=== PATIENT | male | born 1965 | race Caucasian/White ===

== ENCOUNTER 2018-01-31 23:04 | Emergency (ER) | payer SELFPAY ==
[2018-01-31 23:43] VITALS: BP 132/85
[2018-02-01] MEDS ORDERED: HYDROCODONE/ACETAMINOPHEN 5-325 MG (6 TAB/ER DISP) PO PRN (00:22)
[2018-02-01] MEDS ORDERED: PENICILLIN V POTASSIUM 500 MG TABLET PO ONE (00:22)
--- NOTE | 2018-02-01 00:24 | ER Document Report ---
ED General - General Chief Complaint: Toothache Stated Complaint: ABSCESS Time Seen by Provider: 02/01/18 00:08 Notes: Patient is 52-year-old male presents with complaint of a chipped tooth. He said he was eating some today and the tooth broke no evidence of the pain in his tooth. She will call the dentist tomorrow for close follow-up. He denies any fevers. No facial or neck swelling. No difficulty swallowing. He took Motrin at home and did not help the pain. No other complaints at this time. TRAVEL OUTSIDE OF THE [place] IN LAST 30 DAYS: No - Related Data Allergies/Adverse Reactions: No Known Allergies Allergy (Verified 07/01/15 09:29) Past Medical History - Social History Smoking Status: Unknown if Ever Smoked Frequency of alcohol use: None Drug Abuse: None Family History: Reviewed & Not Pertinent - Past Medical History Cardiac Medical History: Denies: Hx Coronary Artery Disease, Hx Heart Attack, Hx Hypertension Pulmonary Medical History: Denies: Hx Asthma, Hx Bronchitis, Hx COPD, Hx Pneumonia Neurological Medical History: Denies: Hx Cerebrovascular Accident, Hx Seizures Musculoskeltal Medical History: Reports Hx Arthritis - rt shoulder - Immunizations Hx Diphtheria, Pertussis, Tetanus Vaccination: No Review of Systems - Review of Systems Notes: My Normal Review Basic REVIEW OF SYSTEMS: CONSTITUTIONAL : Denies fever, chills, or sweats. Denies recent illness. EENT: Dental pain RESPIRATORY: Denies cough, cold, or chest congestion. Denies shortness of breath, difficulty breathing, or wheezing. GASTROINTESTINAL: Denies abdominal pain. Denies nausea, vomiting, or diarrhea. GENITOURINARY: Denies difficulty urinating, painful urination, burning, frequency, or blood in urine. MUSCULOSKELETAL: Denies neck or back pain or joint pain or swelling. SKIN: Denies rash or skin lesions. NEUROLOGICAL: Denies altered mental status or loss of consciousness. Denies headache. Denies weakness or paralysis or loss of use of either side. Denies problems with gait or speech. Denies sensory or motor loss. ALL OTHER SYSTEMS REVIEWED AND NEGATIVE. Physical Exam - Vital signs Vitals: Temp Pulse Resp BP Pulse Ox 98.4 F 55 L 18 132/85 H 97 01/31/18 23:42 01/31/18 23:42 01/31/18 23:42 01/31/18 23:42 01/31/18 23:42 - Notes Notes: General Appearance: Well nourished, alert, cooperative, no acute distress, no obvious discomfort. Vitals: reviewed, See vital signs table. Head: no swelling or tenderness to the head Eyes: PERRL, EOMI, Conjuctiva clear Mouth: Fractured right lower canine. No active bleeding. No facial swelling. Throat: No tonsillar inflammation, No airway obstruction, No lymphadenopathy Neck: Supple, no neck tenderness, No thyromegaly Neuro: speech clear, oriented x 3, normal affect, responds appropriately to questions. Course - Re-evaluation Re-evalutation: 02/01/18 05:23 Patient was discharged home on penicillin and encouraged to follow up with the dentist tomorrow. Patient says he does have a dentist that he will call tomorrow for close follow-up. Patient encouraged to return to ER immediately if he has facial swelling, difficulty breathing, difficulty swallowing, or fevers. Patient agrees with plan will be discharged home. Dictation of this chart was performed using voice recognition software; therefore, there may be some unintended grammatical errors. - Vital Signs Vital signs: Temp Pulse Resp BP Pulse Ox 98.4 F 55 L 18 132/85 H 97 01/31/18 23:42 01/31/18 23:42 01/31/18 23:42 01/31/18 23:42 01/31/18 23:42 Discharge - Discharge Clinical Impression: Toothache Condition: Good Disposition: HOME, SELF-CARE Instructions: Oral Narcotic Medication ([facility]), Penicillin V K ([facility]) Additional Instructions: Please call your dentist in the morning to follow up for definitive treatment of you tooth. Please return to the ER immediately if you develop fevers, swelling below the jaw, difficulty breathing, or difficulty swallowing. Prescriptions: Penicillin V Potassium [Penicillin Vk 500 mg Tablet] 500 mg PO BID #14 tablet Forms: Special Work Note, Return to Work
== END 2018-02-01 00:44 | disposition home or self-care (01) ==
LOC: ER 23:04
DX: K11.20 Sialoadenitis, unspecified (principal); K08.89 Other specified disorders of teeth and supporting structures; F17.200 Nicotine dependence, unspecified, uncomplicated
CPT/HCPCS: 99282

== ENCOUNTER 2018-02-02 13:41 | Emergency (ER) | payer SELFPAY ==
[2018-02-02] MEDS ORDERED: AMPICILLIN SOD/SULBACTAM 3 GM VIAL IV ONE (13:56)
[2018-02-02] MEDS ORDERED: FENTANYL CITRATE INJ/PF 100 MCG/2 ML AMPUL IV ONE (13:56)
--- NOTE | 2018-02-02 13:57 | ER Document Report ---
ED Medical Screen (RME) - General Chief Complaint: Toothache Stated Complaint: MOUTH PAIN Time Seen by Provider: 02/02/18 13:49 Notes: RAPID MEDICAL EVALUATION DISCLOSURE I have seen this patient as part of a Rapid Medical Evaluation and, if applicable, placed any initially appropriate orders. The patient will be seen and fully evaluated, including a full history and physical exam, by a provider ( in Main ED or Fast Track) when a room becomes available. 52-year-old male here with complaints of right-sided facial swelling and toothache ongoing for the past few days. He was seen here for the same thing and was prescribed oxycodone and penicillin. He started taking the penicillin yesterday and was supposed to take it twice daily but has actually taken 4 doses yesterday because he thought it would help the symptoms improve faster. The swelling did go down however states that he woke up this morning and is now worse than it was previously. He is concerned about an abscess. EXAM Mild right facial swelling No sublingual brawny induration Multiple dental caries with no visible drainage TRAVEL OUTSIDE OF THE [place] IN LAST 30 DAYS: No - Related Data Allergies/Adverse Reactions: No Known Allergies Allergy (Verified 02/02/18 13:50) Past Medical History - Social History Chew tobacco use (# tins/day): No Frequency of alcohol use: None Drug Abuse: None - Past Medical History Cardiac Medical History: Denies: Hx Coronary Artery Disease, Hx Heart Attack, Hx Hypertension Pulmonary Medical History: Denies: Hx Asthma, Hx Bronchitis, Hx COPD, Hx Pneumonia Neurological Medical History: Denies: Hx Cerebrovascular Accident, Hx Seizures Renal/ Medical History: Denies: Hx Peritoneal Dialysis Musculoskeltal Medical History: Reports Hx Arthritis - rt shoulder - Immunizations Hx Diphtheria, Pertussis, Tetanus Vaccination: No Physical Exam - Vital signs Vitals: Temp Pulse Resp BP Pulse Ox 99.6 F 72 20 134/91 H 97 02/02/18 13:46 02/02/18 13:46 02/02/18 13:46 02/02/18 13:46 02/02/18 13:46 Course - Vital Signs Vital signs: Temp Pulse Resp BP Pulse Ox 99.6 F 72 20 134/91 H 97 02/02/18 13:46 02/02/18 13:46 02/02/18 13:46 02/02/18 13:46 02/02/18 13:46
[2018-02-02 14:54] LABS: ABSOLUTE EOSINOPHILS # (AUTO) 0.1 10^3/uL (0.0-0.6); ABSOLUTE MONOCYTES (AUTO) 0.9 10^3/uL (0.1-1.4); ABSOLUTE NEUT (AUTO) 4.8 10^3/uL (1.7-8.2); BASOPHILS % (AUTO) 0.3 % (0-2); EOSINOPHILS % (AUTO) 1.4 % (0-6); HEMOGLOBIN 15.7 g/dL (13.5-17.0); LYMPHOCYTES % (AUTO) 33.6 % (13-45); MEAN CORPUSCULAR HEMOGLOBIN 31.2 pg (27.0-33.4); MEAN CORPUSCULAR HGB CONC 35.6 g/dL (32.0-36.0); MEAN CORPUSCULAR VOLUME 88 fl (80-97); MONOCYTES % (AUTO) 10.6 % (3-13); PLATELET COUNT 229 10^3/uL (150-450); RED BLOOD COUNT 5.02 10^6/uL (4.35-5.55); RED CELL DISTRIBUTION WIDTH 12.7 % (11.5-14.0); SEGMENTED NEUTROPHILS % (AUTO) 54.1 % (42-78); TOTAL CELLS COUNTED % (AUTO) 100 %; WHITE BLOOD COUNT 8.9 10^3/uL (4.0-10.5)
--- NOTE | 2018-02-02 15:01 | ER Document Report ---
ED Oral Problem - General Chief Complaint: Toothache Stated Complaint: MOUTH PAIN Time Seen by Provider: 02/02/18 13:49 Notes: The patient is a 52-year-old male who presents with increasing right-sided facial swelling the past 2 days. He was seen in the ER 2 nights ago and prescribed penicillin and oxycodone for suspected dental abscess. He took 4 doses of his penicillin, but the swelling has increasing in size. He has not followed up with the dentist at this time due to weekend, but he has contacted [facility] for an appointment at the [facility]. He has denies difficulty swallowing, neck stiffness, fevers, blurry vision, back pain or ear pain. TRAVEL OUTSIDE OF THE [place] IN LAST 30 DAYS: No - Related Data Allergies/Adverse Reactions: No Known Allergies Allergy (Verified 02/02/18 13:50) Past Medical History - General Information source: Patient - Social History Smoking Status: Current Every Day Smoker Chew tobacco use (# tins/day): No Frequency of alcohol use: None Drug Abuse: None Family History: Reviewed & Not Pertinent Patient has suicidal ideation: No Patient has homicidal ideation: No - Past Medical History Cardiac Medical History: Denies: Hx Coronary Artery Disease, Hx Heart Attack, Hx Hypertension Pulmonary Medical History: Denies: Hx Asthma, Hx Bronchitis, Hx COPD, Hx Pneumonia Neurological Medical History: Denies: Hx Cerebrovascular Accident, Hx Seizures Renal/ Medical History: Denies: Hx Peritoneal Dialysis Musculoskeltal Medical History: Reports Hx Arthritis - rt shoulder - Immunizations Hx Diphtheria, Pertussis, Tetanus Vaccination: No Review of Systems - Review of Systems Notes: REVIEW OF SYSTEMS: CONSTITUTIONAL: -fevers, -chills EENT: -eye pain, -difficulty swallowing, -nasal congestion, +dental pain, +right -sided facial swelling CARDIOVASCULAR: -chest pain, -syncope. RESPIRATORY: -cough, -SOB GASTROINTESTINAL: -abdominal pain, -nausea, -vomiting, -diarrhea GENITOURINARY: -dysuria, -hematuria MUSCULOSKELETAL: -back pain, -neck pain SKIN: -rash or skin lesions. HEMATOLOGIC: -easy bruising or bleeding. LYMPHATIC: -swollen, enlarged glands. NEUROLOGICAL: -altered mental status or loss of consciousness, -headache, - neurologic symptoms PSYCHIATRIC: -anxiety, -depression. ALL OTHER SYSTEMS REVIEWED AND NEGATIVE. Physical Exam - Vital signs Vitals: Temp Pulse Resp BP Pulse Ox 99.6 F 72 20 134/91 H 97 02/02/18 13:46 02/02/18 13:46 02/02/18 13:46 02/02/18 13:46 02/02/18 13:46 - Notes Notes: PHYSICAL EXAMINATION: GENERAL: Well-appearing, well-nourished and in no acute distress. HEAD: Atraumatic, normocephalic. EYES: Pupils equal round and reactive to light, extraocular movements intact, sclera anicteric, conjunctiva are normal. ENT: mild swelling of right-sided lower face sub-mandibular area, no sublingual brawny induration, multiple dental caries with no visible drainage, poor dentition, nares patent, oropharynx clear without exudates. Moist mucous membranes. No tongue elevation. NECK: Normal range of motion, supple with right-sided lymphadenopathy. LUNGS: Breath sounds clear to auscultation bilaterally and equal. No wheezes rales or rhonchi. HEART: Regular rate and rhythm without murmurs ABDOMEN: Soft, nontender, normoactive bowel sounds. No guarding, no rebound. No masses appreciated. EXTREMITIES: Normal range of motion, no pitting or edema. No cyanosis. NEUROLOGICAL: Cranial nerves grossly intact. Normal speech, normal gait. Normal sensory and motor exams. PSYCH: Normal mood, normal affect. SKIN: Warm, Dry, normal turgor, no rashes or lesions noted. Course - Re-evaluation Re-evalutation: Patient appears well and his airway is intact. CT face shows evidence of sialoadenitis without evidence of abscess or Dewayne's. Will switch his penicillin to clindamycin with instructions to take anti-inflammatories and morphine for severe pain. He will follow-up with the dentist as soon as he can. - Vital Signs Vital signs: Temp Pulse Resp BP Pulse Ox 99.6 F 72 20 134/91 H 97 02/02/18 13:46 02/02/18 13:46 02/02/18 13:46 02/02/18 13:46 02/02/18 13:46 - Laboratory Result Diagrams: 02/02/18 14:20 02/02/18 14:20 - Diagnostic Test Radiology reviewed: Image reviewed, Reports reviewed Radiology results interpreted by me: CT Facial W/: Enlarged right submandibular salivary gland with associated reactive appearing lymph node and surrounding fat stranding consistent with sialoadenitis. No focal fluid collection or abscess. Discharge - Discharge Clinical Impression: Pain, dental, Sialadenitis Condition: Stable Disposition: HOME, SELF-CARE Additional Instructions: You have sialoadenitis, which is an infection of a salivary gland. Take the full course of antibiotics and follow-up with the dentist's for definitive care of your cavities. TOOTHACHE: Your pain is due to dental decay. The tooth must be repaired in order for you to feel better. You will, therefore, be referred to a dentist. We do not have dentists on the staff at [facility]. Severe swelling or drainage around a tooth usually means a dental abscess. This also requires evaluation and treatment by the dentist, but antibiotics may be prescribed while awaiting dental treatment. You should be rechecked immediately if you develop major swelling of the face, increasing pain, a lump in the jaw or gums, headache, difficulty swallowing, or fever. ORAL NARCOTIC MEDICATION: You have been given a prescription for pain control. This medication is a narcotic. It's best taken with food, as nausea can result if taken on an empty stomach. Don't operate machinery or drive within six hours of taking this medication. Do not combine this medicine with alcohol, or with any medication which can cause sedation (such as cold tablets or sleeping pills) unless you get permission from the physician. Narcotics tend to cause constipation. If possible, drink plenty of fluids and eat a diet high in fiber and fruits. Please be aware that prescription narcotics also have the potential for abuse. People become addicted to these medications because of the general sense of wellbeing that they induce. This feeling along with a significant reduction in tension, anxiety, and aggression provides a stimulating seductive quality to these drugs. Once your pain is under control, we encourage you to discard your unused narcotics. CLINDAMYCIN: You have been given a prescription for the antibiotic clindamycin. It is often prescribed for infections in the mouth, such as dental infections or abscesses, and for skin infections due to MRSA. It's important that you take all the medication, unless instructed otherwise by your physician. Failure to complete the entire course can result in relapse of your condition. Common side effects of antibiotics include nausea, intestinal cramping, or diarrhea. Women may develop vaginal yeast infections, and babies can get yeast (thrush) in the mouth following the use of antibiotics. Contact your physician if you develop significant side effects from this medication. Allergy to this antibiotic can result in hives, wheezing, faintness, or itching. If symptoms of allergy occur, stop the medication and call the doctor. FOLLOW-UP CARE: You have been referred for follow-up care to the dentists listed below. Call the dentists office for an appointment as you were instructed or within the next two days. If you experience worsening or a significant change in your symptoms, notify the physician immediately or return to the Emergency Department at any time for re-evaluation. [facility] [address] [place], [place] Sunday mornings, by appointment [facility] [address] [place] [address] [facility] [address] [facility] [address] [facility] Emergency Department [facility] [address] [email or web address] [address] [place] [address] Sunday- 8:00am to 5:00 pm Will see patients from other [facility]. Charges based on income and family size and accepts Medicare, Medicaid, and Insurances Will pull molars [facility] Student [facility] [id number] Hours of Operation 8:00 am - 4:30 pm weekdays The following dental offices accept Medicaid: [facility] Dr. Baum Dr. Sanchez Dr. Benson Dr. Colon Alcides Landaverde Lutsavage, and Myla oral surgery Dr. Esteban ([place]) Dr. Grover ([place]) [facility] Drs. Pena and Ramiro ([place]) Dr. Jaimes ([place]) [facility] Dr. Barajas ([place]) Drs. Temple and ([place]) Medicaid Care Line Prescriptions: Clindamycin HCl 300 mg PO Q8H 7 Days capsule Morphine Sulfate [Morphine Ir 15 Mg Tablet] 15 mg PO Q4H PRN #10 tablet PRN Reason: For Breakthrough Pain Forms: Elevated Blood Pressure Referrals: [facility] [Provider Group] - Follow up as needed
[2018-02-02 15:14] LABS: ANION GAP 9 (5-19); BLOOD UREA NITROGEN 8 mg/dL (7-20); CALCIUM 9.7 mg/dL (8.4-10.2); CARBON DIOXIDE 29 mmol/L (22-30); CHLORIDE 101 mmol/L (98-107); GLUCOSE 101 mg/dL (75-110); POTASSIUM 4.4 mmol/L (3.6-5.0); SODIUM 139.4 mmol/L (137-145)
--- NOTE | 2018-02-02 15:53 | RADIOLOGY REPORT (SQ) ---
EXAM DESCRIPTION: CT FACIAL AREA WITH COMPLETED DATE/TIME: 02/02/2018 3:40 pm REASON FOR STUDY: R facial / neck swelling; eval abscess ludwigs COMPARISON: None. TECHNIQUE: Post contrast images through the facial bones and orbits windowed for bone and soft tissu e. Additional coronal and sagittal reconstructed images reviewed. All images stored on PACS. All CT scanners at this facility use dose modulation, iterative reconstruction, and/or weight based d osing when appropriate to reduce radiation dose to as low as reasonably achievable (ALARA). [facility]: Dose Right [facility]: CareDose [facility]: Dose Right [facility]: Teradose 4D [facility]: [employer] CONTRAST TYPE AND DOSE: contrast/concentration: Isovue 370.00 mg/ml; Total Contrast Delivered: 75.0 ml; Total Saline Delivered: 55.0 ml RENAL FUNCTION: BUN 8; creatinine 0.63 RADIATION DOSE: CT Rad equipment meets quality standard of care and radiation dose reduction techniq ues were employed. CTDIvol: 30.4 mGy. DLP: 633 mGy-cm. . LIMITATIONS: None. FINDINGS: FACIAL BONES: No fracture or bone lesion. ORBITS: Intact. No fracture. Symmetric intact globes and retroorbital soft tissues. PARANASAL SINUSES: Scattered ethmoid air cell opacities. Circumferential mucosal thickening with foa my secretions within the right maxillary sinus. Left maxillary mucous retention cyst versus polyp. Left sphenoid mucous retention cyst versus polyp. No nasal polyps. Maxillary sinus outlets are patent . SOFT TISSUES: The right submandibular salivary gland appears enlarged, but otherwise demonstrates sha ogeneous attenuation. A reactive lymph node is seen adjacent to this finding. Scant fat stranding i s likewise noted. INFERIOR BRAIN: Limited view. No acute findings. OTHER: No other significant finding. IMPRESSION: Enlarged right submandibular salivary gland with associated reactive appearing lymph nod e and surrounding fat stranding consistent with sialadenitis. No focal fluid collection or abscess. TECHNICAL DOCUMENTATION: JOB ID: [id number] Quality ID # [id number]: Final reports with documentation of one or more dose reduction techniques (e.g., Au tomated exposure control, adjustment of the mA and/or kV according to patient size, use of iterative reconstruction technique) 2010 [employer] All Rights Reserved Reading location - IP/workstation name: [email or web address]
[2018-02-02 16:19] VITALS: BP 121/92
== END 2018-02-02 16:19 | disposition home or self-care (01) ==
LOC: ER 13:41
DX: K02.9 Dental caries, unspecified (principal); K11.20 Sialoadenitis, unspecified; K08.89 Other specified disorders of teeth and supporting structures; F17.200 Nicotine dependence, unspecified, uncomplicated
CPT/HCPCS: 99284; 96375; 96365; 36415; 87040; 85025; 80048; 70487; J3010; J0295

== ENCOUNTER 2018-07-02 18:45 | Emergency (ER) | payer SELFPAY ==
[2018-07-02 19:14] VITALS: BP 134/83
[2018-07-02] MEDS ORDERED: PENICILLIN V POTASSIUM 500 MG TABLET PO ONE (21:24)
[2018-07-02] MEDS ORDERED: IBUPROFEN 800 MG TABLET PO ONE (21:24)
[2018-07-02] MEDS ORDERED: HYDROCODONE/ACETAMINOPHEN 5-325 MG (6 TAB/ER DISP) PO PRN (21:24)
--- NOTE | 2018-07-02 21:24 | ER Document Report ---
ED General - General Chief Complaint: Ear Pain Stated Complaint: EAR/TOOTH/SINUS PAIN Time Seen by Provider: 07/02/18 20:58 Mode of Arrival: Ambulatory Information source: Patient TRAVEL OUTSIDE OF THE [place].S. IN LAST 30 DAYS: No - HPI Notes: Patient is a 52-year-old male presents to the emergency department with report of a 3-day history of pain to the right lower jawline with radiation up to the right mandaen and submandibular region. The patient reports minimal chronic congestion which is unchanged. He has no history of diabetes. He has had no fever. He denies any chest pain or difficulty breathing or nausea or vomiting. No numbness or paresthesia. He does question some mild seasonal allergies. Not the worst headache of the patient's life. No head injury or neck stiffness. Patient had a similar presentation [address] scan which showed a mild sialoadenitis but no abscess. - Related Data Allergies/Adverse Reactions: No Known Allergies Allergy (Verified 07/02/18 18:46) Past Medical History - General Information source: Patient - Social History Smoking Status: Former Smoker Frequency of alcohol use: None Drug Abuse: None Lives with: Friend Family History: Reviewed & Not Pertinent Patient has suicidal ideation: No Patient has homicidal ideation: No - Past Medical History Cardiac Medical History: Denies: Hx Coronary Artery Disease, Hx Heart Attack, Hx Hypertension Pulmonary Medical History: Denies: Hx Asthma, Hx Bronchitis, Hx COPD, Hx Pneumonia Neurological Medical History: Denies: Hx Cerebrovascular Accident, Hx Seizures Renal/ Medical History: Denies: Hx Peritoneal Dialysis Musculoskeletal Medical History: Reports Hx Arthritis - rt shoulder - Immunizations Hx Diphtheria, Pertussis, Tetanus Vaccination: No Review of Systems - Review of Systems -: Yes All other systems reviewed and negative Physical Exam - Vital signs Vitals: Temp Pulse Resp BP Pulse Ox 98.4 F 56 L 14 134/83 H 96 07/02/18 19:13 07/02/18 19:13 07/02/18 19:13 07/02/18 19:13 07/02/18 19:13 - Notes Notes: PHYSICAL EXAMINATION: GENERAL: Well-appearing, well-nourished and in no acute distress. HEAD: Atraumatic, normocephalic. EYES: Pupils equal round and reactive to light, extraocular movements intact, sclera anicteric, conjunctiva are normal. ENT: Nares patent, oropharynx clear without exudates. Moist mucous membranes. Dental caries noted with pain and mild swelling lateral to tooth #30. No gross evidence for abscess. Posterior pharynx is clear. No facial cellulitis. No evidence for Ludwigs. Tympanic membranes clear. NECK: Normal range of motion, supple with left submandibular and anterior cervical lymphadenopathy LUNGS: Breath sounds clear to auscultation bilaterally and equal. No wheezes rales or rhonchi. HEART: Regular rate and rhythm without murmurs ABDOMEN: Soft, nontender, nondistended abdomen. No guarding, no rebound. No masses appreciated. Musculoskeletal: Normal range of motion, no pitting or edema. No cyanosis. NEUROLOGICAL: Cranial nerves grossly intact. Normal speech, normal gait. Normal sensory, motor exams PSYCH: Normal mood, normal affect. SKIN: Warm, Dry, normal turgor, no rashes or lesions noted. Course - Re-evaluation Re-evalutation: 07/02/18 21:21 Patient was given penicillin and Hammond and ibuprofen. Findings fit more so the dental infection with radiation of pain, with secondary lymph node inflammation. Cannot exclude sialoadenitis similar to previous presentation 4 months ago. 07/02/18 21:22 - Vital Signs Vital signs: Temp Pulse Resp BP Pulse Ox 98.4 F 56 L 14 134/83 H 96 07/02/18 19:13 07/02/18 19:13 07/02/18 19:13 07/02/18 19:13 07/02/18 19:13 Discharge - Discharge Clinical Impression: Lymphadenopathy, Toothache, Dental caries Condition: Stable Disposition: HOME, SELF-CARE Instructions: Toothache ([facility]), Dentist, Dental Infection or Abscess ([facility]) Additional Instructions: Warm compresses to the area. Take Claritin or [place] or Zyrtec as needed for any seasonal allergy problems. Return to the emergency department in case of fever, severe swelling or pain. Prescriptions: Hydrocodone/Acetaminophen [Hammond 5-325 mg Tablet] 1 tab PO Q4HP PRN #25 tablet PRN Reason: Ibuprofen [Ibu] 800 mg PO Q8HP PRN #30 tablet PRN Reason: Penicillin V Potassium [Penicillin Vk 500 mg Tablet] 500 mg PO QID #28 tablet
== END 2018-07-02 21:45 | disposition home or self-care (01) ==
LOC: ER 18:45
DX: K02.9 Dental caries, unspecified (principal); K08.89 Other specified disorders of teeth and supporting structures; R59.0 Localized enlarged lymph nodes; Z87.891 Personal history of nicotine dependence
CPT/HCPCS: 99282

== ENCOUNTER → 2018-10-14 | Outpatient (CLI) | payer BC ==
[2018-10-14 10:35] LABS: ABSOLUTE BASOPHILS # (AUTO) 0.1 10^3/uL (0.0-0.2); ABSOLUTE EOSINOPHILS # (AUTO) 0.2 10^3/uL (0.0-0.6); ABSOLUTE LYMPHOCYTES (AUTO) 4.5 10^3/uL (0.5-4.7); ABSOLUTE MONOCYTES (AUTO) 1.1 10^3/uL (0.1-1.4); ABSOLUTE NEUT (AUTO) 4.3 10^3/uL (1.7-8.2); BASOPHILS % (AUTO) 0.5 % (0-2); EOSINOPHILS % (AUTO) 1.9 % (0-6); HEMOGLOBIN 15.7 g/dL (13.5-17.0); LYMPHOCYTES % (AUTO) 43.8 % (13-45); MEAN CORPUSCULAR HEMOGLOBIN 31.8 pg (27.0-33.4); MEAN CORPUSCULAR HGB CONC 35.8 g/dL (32.0-36.0); MEAN CORPUSCULAR VOLUME 89 fl (80-97); MONOCYTES % (AUTO) 11.1 % (3-13); PLATELET COUNT 219 10^3/uL (150-450); RED BLOOD COUNT 4.95 10^6/uL (4.35-5.55); RED CELL DISTRIBUTION WIDTH 12.3 % (11.5-14.0); SEGMENTED NEUTROPHILS % (AUTO) 42.7 % (42-78); TOTAL CELLS COUNTED % (AUTO) 100 %; WHITE BLOOD COUNT 10.2 10^3/uL (4.0-10.5)
[2018-10-14 11:01] LABS: ALANINE AMINOTRANSFERASE 28 U/L (21-72); ALBUMIN 4.3 g/dL (3.5-5.0); ALKALINE PHOSPHATASE 84 U/L (38-126); ANION GAP 8 (5-19); ASPARTATE AMINO TRANSFERASE 34 U/L (17-59); BILIRUBIN,DIRECT 0.3 mg/dL (0.0-0.4); BILIRUBIN,TOTAL 0.4 mg/dL (0.2-1.3); BLOOD UREA NITROGEN 9 mg/dL (7-20); CALCIUM 9.4 mg/dL (8.4-10.2); CARBON DIOXIDE 27 mmol/L (22-30); CHLORIDE 103 mmol/L (98-107); CHOLESTEROL 159.37 mg/dL (0-200); GLUCOSE 96 mg/dL (75-110); POTASSIUM 4.8 mmol/L (3.6-5.0); SODIUM 137.8 mmol/L (137-145); TRIGLYCERIDES 135 mg/dL (<150)
[2018-10-14 11:13] LABS: DIRECT LDL 101 mg/dL (<100)
== END ==
LOC: OD 10:07
PROVIDERS: ATTEND Family Medicine Geriatric Medicine
DX: Z00.00 Encounter for general adult medical examination without abnormal findings (principal); E66.3 Overweight; N52.9 Male erectile dysfunction, unspecified; R03.0 Elevated blood-pressure reading, without diagnosis of hypertension; K05.30 Chronic periodontitis, unspecified; K02.9 Dental caries, unspecified; J30.2 Other seasonal allergic rhinitis; M75.111 Incomplete rotator cuff tear or rupture of right shoulder, not specified as traumatic; Z87.891 Personal history of nicotine dependence; Z29.9 Encounter for prophylactic measures, unspecified; Z79.899 Other long term (current) drug therapy; Z68.28 Body mass index [BMI] 28.0-28.9, adult
CPT/HCPCS: 36415; 80053; 80061; 84443; 85025